=== PATIENT | male | born 1965 | race African-American/Black ===

== ENCOUNTER 2021-04-24 07:21 | Inpatient (IN) ==
[~2021-04-24 07:21] MED LIST: Buffered Lidocaine 1% SYRIN 1 ml INTRADERM ONE; Lactated Ringers 1000 ml BAG 1,000 ML IV SCH
[2021-04-24] MEDS ORDERED: ceFAZolin 2 GM in NS PREMIX 2 GM/100 ML BAG IVPB ONE (07:45)
[2021-04-24] MEDS ORDERED: Lidocaine 2% PF 5 ML VIAL ONE (09:05)
[2021-04-24] MEDS ORDERED: Midazolam 2 mg/2 ml VIAL 1 mg/ml 2 ml VIAL (2 mg) ONE (09:05)
[2021-04-24] MEDS ORDERED: Dexamethasone IV 4 MG/ML VIAL 1 ml VIAL ONE (09:05)
[2021-04-24] MEDS ORDERED: Ondansetron 4 mg VIAL 2 MG/ML 2 ml VIAL ONE (09:05)
[2021-04-24] MEDS ORDERED: HYDROmorphone 0.5 MG/0.5 ML SYRINGE ONE (09:05)
[2021-04-24] MEDS ORDERED: Rocuronium 50 mg VIAL 10 mg/ml 5 ml VIAL (50 mg) ONE (09:05)
[2021-04-24] MEDS ORDERED: Propofol 10 MG/ML 20 ML BTL ONE (09:05)
[2021-04-24] MEDS ORDERED: fentaNYL 250 mcg/5 ml 50 MCG/ML 5 ml VIAL (250 MCG) ONE (09:05)
[2021-04-24] MEDS ORDERED: Acetaminophen IV 1 GM/100ML 100 ML IV ONE (09:05)
[2021-04-24] MEDS ORDERED: Phenylephrine 40 mcg/mL 10mL (400mcg) SYRINGE ONE (10:01)
[2021-04-24] MEDS ORDERED: Ondansetron 4 mg VIAL 2 MG/ML 2 ml VIAL IV PRN ×2 (10:14→10:34)
[2021-04-24] MEDS ORDERED: Naloxone 0.4 mg VIAL 0.4 mg/ml 1 ml VIAL IV PRN (10:14)
[2021-04-24] MEDS ORDERED: DiMENhydriNATE IV 50 mg/ml 1 ml VIAL IV PUSH PRN (10:14)
[2021-04-24] MEDS ORDERED: HYDROmorphone 1 MG/1 ML SYRINGE IV PRN (10:14)
[2021-04-24] MEDS ORDERED: diPHENhydraMINE IV 50 MG/ML 1 ml VIAL (BENADRYL) IV PRN ×2 (10:14→10:34)
[2021-04-24] MEDS ORDERED: diPHENhydraMINE 25 mg TAB PO PRN (10:34)
[2021-04-24] MEDS ORDERED: Lactulose 30 ml UDC PO PRN (10:34)
[2021-04-24] MEDS ORDERED: Magnesium Hydroxide LIQ 30 ML UDC PO PRN (10:34)
[2021-04-24] MEDS ORDERED: Ondansetron ODT 4 mg TAB 4 MG TAB PO PRN (10:34)
[2021-04-24] MEDS ORDERED: Lactated Ringers 1000 ml BAG 1,000 ML IV SCH (11:00)
[2021-04-24] MEDS ORDERED: hydrALAZINE 20 mg/ml 1 ML Vial IV IV SLOW PU PRN (13:22)
[2021-04-24] MEDS ORDERED: Labetalol IV 5 MG/ML 20 ml VIAL ONE (13:27)
[2021-04-24] MEDS: ceFAZolin 1 GM ADVAN 1 GM in NS 0.9% 50 ML 50 ML IVPB SCH (17:48)
[2021-04-24] MEDS: Magnesium Hydroxide LIQ 30 ML UDC PO SCH (21:30)
[2021-04-25] MEDS: ceFAZolin 1 GM ADVAN 1 GM in NS 0.9% 50 ML 50 ML IVPB SCH ×2 (01:35→10:07)
[2021-04-25 06:57] VITALS: BP 134/91
[2021-04-25 07:01] LABS: Hematocrit 31 % (42-52); Hemoglobin 11.1 g/dL (14.0-18.0); Mean Platelet Volume 8.1 fL (7.4-10.4); Platelet Count 303 10^3/uL (150-450)
[2021-04-25 07:12] LABS: Potassium 4.2 mmol/L (3.5-5.0)
[2021-04-25 07:39] LABS: Calcium 9.2 mg/dL (8.6-10.3); eGFR CKD-EPI 102.8 (>60)
[2021-04-25] MEDS: Magnesium Hydroxide LIQ 30 ML UDC PO SCH (07:59)
[2021-04-25] MEDS ORDERED: Vitamin THERAPEUTIC TAB PO SCH (09:00)
== END 2021-04-25 11:04 | disposition home or self-care (01) | DRG 301 ==
LOC: SSU → INTOOBSV 07:21 → AA 07:21
PROVIDERS: ADMIT Orthopaedic Surgery Adult Reconstructive Orthopaedic Surgery; ATTEND Orthopaedic Surgery Adult Reconstructive Orthopaedic Surgery

== ENCOUNTER 2022-05-02 13:10 | Inpatient (IN) ==
[~2022-05-02 13:10] MED LIST changes: +Naloxone 0.4 mg VIAL 0.4 mg/ml 1 ml VIAL IV PRN; +Ondansetron 4 mg VIAL 2 MG/ML 2 ml VIAL IV PRN
[2022-05-02] MEDS ORDERED: ceFAZolin 2 GM PREMIX 2 GM/50 ML BAG ONE (13:47)
[2022-05-02] MEDS ORDERED: Midazolam 2 mg/2 ml VIAL 1 mg/ml 2 ml VIAL (2 mg) ONE (16:30)
[2022-05-02] MEDS ORDERED: Rocuronium 50 mg VIAL 10 mg/ml 5 ml VIAL (50 mg) ONE (16:30)
[2022-05-02] MEDS ORDERED: fentaNYL 250 mcg/5 ml 50 MCG/ML 5 ml VIAL (250 MCG) ONE (16:31)
[2022-05-02] MEDS ORDERED: Lidocaine 2% PF 5 ML VIAL ONE (16:32)
[2022-05-02] MEDS ORDERED: Propofol 10 MG/ML 20 ML BTL ONE (16:32)
[2022-05-02] MEDS ORDERED: Ondansetron ODT 4 mg TAB 4 MG TAB PO PRN (17:14)
[2022-05-02] MEDS ORDERED: Magnesium Hydroxide LIQ 30 ML UDC PO PRN (17:14)
[2022-05-02] MEDS ORDERED: Morphine 2 MG/ML SYRINGE IV PRN (17:14)
[2022-05-02] MEDS ORDERED: Ondansetron 4 mg VIAL 2 MG/ML 2 ml VIAL IV PRN (17:14)
[2022-05-02] MEDS ORDERED: Lactulose 30 ml UDC PO PRN (17:14)
[2022-05-02] MEDS ORDERED: Ketamine HCL 50 mg/ml 10 ml VIAL (500 MG) ONE (17:15)
[2022-05-02] MEDS ORDERED: Acetaminophen IV 1 GM/100ML 1,000 MG/100 ML BAG IV ONE (17:17)
[2022-05-02] MEDS ORDERED: Lactated Ringers 1000 ml BAG 1,000 ML IV SCH (18:00)
[2022-05-02] MEDS ORDERED: ROPIVACAINE 5 MG/ML 30 ML BTL (0.5%) ONE (18:07)
[2022-05-02] MEDS ORDERED: Dexamethasone IV 4 MG/ML VIAL 1 ml VIAL ONE (19:09)
[2022-05-02] MEDS ORDERED: Ondansetron 4 mg VIAL 2 MG/ML 2 ml VIAL ONE (19:09)
[2022-05-02] MEDS ORDERED: fentaNYL 100 mcg/2 ml 50 MCG/ML VIAL ONE (20:13)
[2022-05-02] MEDS: fentaNYL 100 mcg/2 ml 50 MCG/ML VIAL IV PRN ×2 (20:20→20:27)
[2022-05-02] MEDS: Magnesium Hydroxide LIQ 30 ML UDC PO SCH (23:03)
[2022-05-03] MEDS: ceFAZolin 1 GM ADVAN 1 GM in NS 0.9% 50 ML 50 ML IVPB SCH ×3 (00:42→15:57)
[2022-05-03 06:34] LABS: Hematocrit 33 % (42-52); Hemoglobin 11.2 g/dL (14.0-18.0); Mean Platelet Volume 8.6 fL (7.4-10.4); Platelet Count 247 10^3/uL (150-450)
[2022-05-03 06:59] LABS: Calcium 8.8 mg/dL (8.6-10.3); Creatinine, Serum 1.09 mg/dL (0.67-1.17); Potassium 4.5 mmol/L (3.5-5.0); eGFR CKD-EPI 78.7 (>60)
[2022-05-03] MEDS: Magnesium Hydroxide LIQ 30 ML UDC PO SCH (08:12)
[2022-05-03 08:29] VITALS: BP 123/75
[2022-05-03] MEDS ORDERED: Vitamin THERAPEUTIC TAB PO SCH (09:00)
== END 2022-05-03 16:50 | disposition home or self-care (01) | DRG 301 ==
LOC: AA 13:10 → SSU 21:56
PROVIDERS: ADMIT Orthopaedic Surgery Adult Reconstructive Orthopaedic Surgery; ATTEND Orthopaedic Surgery Adult Reconstructive Orthopaedic Surgery